=== PATIENT | female | born 1950 | race Caucasian/White ===

== ENCOUNTER 2019-12-10 14:23 | Outpatient (CLI) | payer MEDICARE, SELFPAY ==
--- NOTE | 2019-12-10 15:02 | ECHO_ITS ---
Patient Info Name: Monisha Greco Age: 69 years : 1950 Gender: Female Ht: 67 in Wt: 184 lbs BSA: 2.01 m2 HR: 67 bpm BP: 142 / 87 mmHg Technical Quality: Good Exam Date: 12/10/2019 3:09 PM Exam Location: [facility] Patient Status: Outpatient Admit Date: 12/10/2019 Staff Ordering Physician: Yong Go DO Lathe Operator Contact Lens: Sarah Deras RDCS Attending Provider: Yong Go DO Referring Physician: Donavan ANDINO; Exam Type: CA echo doppler color flow Study Info Indications - short of breath Complete two-dimensional, color flow and Doppler transthoracic echocardiogram is performed. Summary 1. Left ventricular chamber dimension is normal. 2. Left ventricular systolic function is normal, estimated at 60-65%. 3. The left ventricular diastolic function is grade I diastolic dysfunction. 4. E/e' 9 is minimally elevated. 5. There is trace tricuspid valve regurgitation. 6. No pulmonary hypertension, estimated pulmonary arterial systolic pressure is 31 mmHg. 7. There is trace pulmonic regurgitation. Left Ventricle E/e' 9 is minimally elevated. Left ventricular chamber dimension is normal. Left ventricular systolic function is normal, estimated at 60-65%. The left ventricular diastolic function is grade I diastolic dysfunction. Right Ventricle Right ventricular chamber dimension is normal. Right ventricular systolic function is normal. Left Atria Left atrial chamber dimension is normal. Right Atria Right atrial chamber dimension is normal. Aortic Valve The aortic valve is trileaflet. There is no aortic valve stenosis. There is no aortic valve regurgitation. Pulmonic Valve There is trace pulmonic regurgitation. Mitral Valve There is no mitral valve stenosis. There is no mitral valve regurgitation. Tricuspid Valve There is trace tricuspid valve regurgitation. No pulmonary hypertension, estimated pulmonary arterial systolic pressure is 31 mmHg. Pericardium/Pleural There is no pericardial effusion. Inferior Vena Cava Normal inferior vena cava with >50% collapse upon inspiration consistent with normal right atrial pressure, 5 mmHg. Aorta The aortic root size at the sinus of Valsalva is normal. Left Ventricular Outflow Tract Name Value Normal LVOT 2D LVOT Diameter 2.0 cm LVOT Doppler LVOT Peak Gradient 5 mmHg LVOT Mean Gradient 3 mmHg LVOT VTI 23 cm LVOT VTI/AV VTI Ratio 1.0 LVOT Stroke Volume 72 ml LVOT CO 14.2 l/min LVOT CI 7.1 l/min/m2 Pulmonic Valve Name Value Normal PV Doppler PV Peak Gradient 3 mmHg Mitral Valve
== END 2019-12-10 14:24 | disposition home or self-care (01) ==
PROVIDERS: PCP Internal Medicine; Visit Provider Internal Medicine Cardiovascular Disease
DX: R06.02 Shortness of breath (principal)
CPT/HCPCS: 93306

== ENCOUNTER 2020-12-17 11:43 | Emergency (ER) | payer MEDICARE, SELFPAY ==
--- NOTE | 2020-12-17 11:52 | ED.GENADULT ---
HPI - General Adult General Chief complaint: Ear Stated complaint: swollen, ear Time Seen by Provider: 12/17/20 11:59 Source: patient and RN notes reviewed Mode of arrival: ambulatory Limitations: no limitations History of Present Illness HPI narrative: 70-year-old female presents with complaints of redness, warmth, tenderness, and swelling to right earlobe for 1 day. Monisha reports wearing an old pair of earrings 2 days prior to start of symptoms, increase in tenderness, redness, and intermittent itching throughout the night. Applied drawing salve and cleaned area without relief. Denies radiation of tenderness, redness, or swelling. Denies insect bite. No exacerbating factors. Denies open areas or drainage. Denies fever or chills. LMP post-menopausal. Remains active. The patient reports she have not been diagnosed with COVID-19. The patient reports she is not waiting for the results of a COVID-19 lab test. The patient reports she do not have chills, weakness, or fatigue. The patient reports she do not have a new or worsening cough or shortness of breath. Denies chest pain. The patient reports she do not have any rhinorrhea, congestion, sore throat, loss of taste or smell, nausea, vomiting, abdominal pain, and diarrhea. Tolerating po intake well. Denies recent traveling. Denies concerns for COVID-19 or exposures been home with limited outdoor exposure except for essential household needs and return home. At this time, patient is not suspected of having COVID-19. Some parts of this dictation were generated by voice recognition software and may contain typographical and/or grammatical inaccuracies. Related Data Home Medications Medication Instructions Recorded Confirmed multivitamin with minerals 1 tablet PO DAILY 11/26/19 12/17/20 potassium 99 mg tablet 99 mg PO DAILY 11/26/19 12/17/20 levothyroxine [Euthyrox] 50 mcg PO DAILY 12/17/20 12/17/20 meloxicam 15 mg PO DAILY 12/17/20 12/17/20 Allergies Allergy/AdvReac Type Severity Reaction Status Date / Time No Known Allergies Allergy Verified 12/15/20 11:54 Review of Systems Review of Systems: Narrative: CONSTITUTIONAL: Denies fever, chills, sweats. EYES: Denies visual changes, redness, discharge. ENT: Denies rhinorrhea, congestion, sore throat, otalgia. CARDIOVASCULAR: Denies chest pain, palpitations, edema. RESPIRATORY: Denies dyspnea, wheezing, cough. GASTROINTESTINAL: Denies abdominal pain, nausea, vomiting, diarrhea. SKIN: Complaints of redness, warmth, tenderness, swelling, and intermittent itching to right earlobe. MUSCULOSKELETAL: Denies acute back pain, joint pain, or myalgia. NEUROLOGIC: Denies numbness or focal weakness. PSYCHIATRIC: Denies anxiety or depression. All systems reviewed & are unremarkable except as noted in HPI and below. [facility] Past Medical History Medical History (Updated 12/17/20 @ 12:27 by MIK Arevalo) Arthritis Chronic GERD Hypertension Hyperuricemia Hypothyroidism (acquired) Influenza vaccine administered Prevbar 13 was given in L delt on 07/23/2019 at [facility] hyperlipidemia Obstructive sleep apnea wears a CPAP Vaccine for VZV (varicella-zoster virus) Surgical History Surgical History (Updated 12/17/20 @ 12:27 by MIK Arevalo) H/O dilation and curettage History of colonoscopy History of knee replacement History of total left knee replacement [facility] 07/06/2020 Family History Family History Other Family history of coronary artery disease Family history of malignant neoplasm of male breast Hypertension Social History Social History (Updated 12/17/20 @ 12:25 by MIK Arevalo) Smoking status: Never smoker Tobacco type: cigarettes Second hand tobacco smoke exposure: No Alcohol intake: current Substance use: never Substance use type: does not use Living arrangements: with family Occupation/E
[2020-12-17 11:57] VITALS: BP 184/98; PULSE 103; RESP 18; TEMP 36.9; O2SAT 99
[2020-12-17 12:08] VITALS: BP 168/89
== END 2020-12-17 12:24 | disposition home or self-care (01) ==
PROVIDERS: Emergency Provider Nurse Practitioner Family; PCP Internal Medicine
DX: H60.11 Cellulitis of right external ear (principal); M19.90 Unspecified osteoarthritis, unspecified site; K21.9 Gastro-esophageal reflux disease without esophagitis; I10 Essential (primary) hypertension; E03.9 Hypothyroidism, unspecified; E78.2 Mixed hyperlipidemia; G47.33 Obstructive sleep apnea (adult) (pediatric); Z96.642 Presence of left artificial hip joint
CPT/HCPCS: 99213; G0463

== ENCOUNTER 2021-12-05 13:47 | Outpatient (CLI) | payer MEDICARE, SELFPAY | END 2021-12-05 13:48 | disposition home or self-care (01) | LOC: ANHAUDASC 13:48 | PROVIDERS: PCP Family Medicine; Visit Provider Otolaryngology | DX: H93.13 Tinnitus, bilateral (principal); H90.3 Sensorineural hearing loss, bilateral | CPT/HCPCS: 92557; 92567 ==

== ENCOUNTER 2022-11-23 02:15 | Day surgery (SDC) | payer MEDICARE, SELFPAY ==
[2022-11-10 10:37] VITALS: BMI 28.8
[2022-11-23 08:58] VITALS: BP 183/86; PULSE 102; RESP 18; TEMP 36.7; O2SAT 100; BMI 28.7
[2022-11-23] MEDS: LACTATED RINGERS 1,000 ML 150 ML IV CONT (09:08)
--- NOTE | 2022-11-23 09:38 | PM.HPGS ---
History of Present Illness History of Present Illness Consent: Risks, benefits, and alternatives have been discussed and questions answered. Patient agrees to proceed with procedure. Chief complaint: positive cologuard test Narrative: Monisha Greco is a 71 year old female Presents for screening colonoscopy. Patient recently found to have a positive Cologuard test. Patient presents today for colonoscopy. Patient reports that her current weight appetite and bowel movements are normal. Patient denies abdominal pain. She has had no bleeding. Her family history is noncontributory. Review of Systems Review of Systems: Review of systems noncontributory. [facility] Past Medical History Medical History (Updated 11/07/22 @ 13:15 by Mina López MD) Arthritis Chronic GERD Encounter for counseling on use of CPAP Hypertension Hypertension Hyperuricemia Hypothyroidism (acquired) Influenza vaccine administered Prevbar 13 was given in L delt on 07/23/2019 at [facility] Mixed hyperlipidemia Obstructive sleep apnea wears a CPAP Positive colorectal cancer screening using Cologuard test Thyroid disorder Vaccine for VZV (varicella-zoster virus) Surgical History Surgical History ) H/O dilation and curettage History of colonoscopy History of knee replacement History of total left knee replacement [facility] 07/06/2020 Family History Family History ) Father Heart disease Malignant neoplasm of prostate Mother Hypertension Thyroid disorder Sibling Breast cancer Other Family history of coronary artery disease Family history of malignant neoplasm of male breast Social History Social History ) Smoking status: Never smoker Tobacco type: cigarettes Second hand tobacco smoke exposure: No Alcohol intake: current Drinks per week: 2 Substance use: never Substance use type: does not use Living arrangements: alone Gender identity (if verbalized by the patient): Male Sexual Orientation (if Verbalized by the Patient): Straight or Heterosexual Spiritual care concerns: No Agree to blood products: Yes Meds Home Medications and Allergies Home Medications Medication Instructions Recorded Confirmed Type multivitamin with minerals 1 tablet PO DAILY 11/26/19 11/23/22 History potassium 99 mg tablet 99 mg PO DAILY 11/26/19 11/23/22 History vitamin E 100 unit capsule 150 unit PO DAILY #135 caps 08/05/20 11/23/22 Rx allopurinol 300 mg tablet 300 mg PO DAILY #90 tabs 01/27/22 11/23/22 Rx rosuvastatin 10 mg tablet 5 mg PO DAILY #90 tabs 05/02/22 11/23/22 Rx Eye Promise 1 tablet PO DAILY 11/10/22 11/23/22 History calcium 600 mg capsule 600 mg PO DAILY 11/10/22 11/23/22 History famotidine 20 mg tablet 20 mg PO DAILY 11/10/22 11/23/22 History levothyroxine 50 mcg tablet 50 mcg PO DAILY 11/10/22 11/23/22 History (Euthyrox) omega-3 fatty acids-vitamin E 1 cap PO DAILY 11/10/22 11/23/22 History 1,000 mg capsule triamterene 75 1 tablet PO DAILY 11/10/22 11/23/22 History mg-hydrochlorothiazide 50 mg tablet Allergies Allergy/AdvReac Type Severity Reaction Status Date / Time No Known Allergies Allergy Verified 11/23/22 08:56 Vital Signs Vital Signs - 24 hr 11/23/22 08:58 Temperature 98.1 F Pulse Rate 102 H Respiratory Rate 18 Blood Pressure 183/86 H Pulse Oximetry 100 Oxygen Delivery Room Air Exam Narrative: Physical exam reveals patient to be alert. Vital signs stable. HEENT exam is unremarkable. Patient is anicteric. Lungs are clear to auscultation and percussion. Heart is without murmur or extra sounds. Abdomen bowel sounds are present soft nontender with no hepatosplenomegaly. Digital external rectal exam is normal. Assessment and Plan Assessment and plan (1) Positive colorectal cancer screening using [place]
--- NOTE | 2022-11-23 09:43 | WPDANESEPPF ---
Anes - Initial Pre Proc Eval Procedure: Operation Date: 11/23/22 10:00 Proposed Procedures p Colonoscopy - Attila Gallegos MD Date/Time: 11/23/22 09:43 Surgeon: Attila Gallegos MD Pre Op Diagnosis: positive cologuard test Patient Data Age: 71 Gender: F Height: 1.7 m Weight: 83.1 kg Last Vital Signs Temp 98.1 F 11/23/22 08:58 Pulse 102 H 11/23/22 08:58 Resp 18 11/23/22 08:58 BP 183/86 H 11/23/22 08:58 Pulse Ox 100 11/23/22 08:58 O2 Del Method Room Air 11/23/22 08:58 Allergies Allergy/AdvReac Type Severity Reaction Status Date / Time No Known Allergies Allergy Verified 11/23/22 08:56 Home Medications Medication Instructions Recorded Confirmed Type multivitamin with minerals 1 tablet PO DAILY 11/26/19 11/23/22 History potassium 99 mg tablet 99 mg PO DAILY 11/26/19 11/23/22 History vitamin E 100 unit capsule 150 unit PO DAILY #135 caps 08/05/20 11/23/22 Rx allopurinol 300 mg tablet 300 mg PO DAILY #90 tabs 01/27/22 11/23/22 Rx rosuvastatin 10 mg tablet 5 mg PO DAILY #90 tabs 05/02/22 11/23/22 Rx Eye Promise 1 tablet PO DAILY 11/10/22 11/23/22 History calcium 600 mg capsule 600 mg PO DAILY 11/10/22 11/23/22 History famotidine 20 mg tablet 20 mg PO DAILY 11/10/22 11/23/22 History levothyroxine 50 mcg tablet 50 mcg PO DAILY 11/10/22 11/23/22 History (Euthyrox) omega-3 fatty acids-vitamin E 1 cap PO DAILY 11/10/22 11/23/22 History 1,000 mg capsule triamterene 75 1 tablet PO DAILY 11/10/22 11/23/22 History mg-hydrochlorothiazide 50 mg tablet Patient hx anesthesia problems: none Family hx anesthesia problems: none Results Review: All pre-operative results and documents have been reviewed as part of the pre-operative evaluation. [facility] Past Medical History Medical History (Updated 11/07/22 @ 13:15 by Mina López MD) Arthritis Chronic GERD Encounter for counseling on use of CPAP Hypertension Hypertension Hyperuricemia Hypothyroidism (acquired) Influenza vaccine administered Prevbar 13 was given in L delt on 07/23/2019 at [facility] Mixed hyperlipidemia Obstructive sleep apnea wears a CPAP Positive colorectal cancer screening using Cologuard test Thyroid disorder Vaccine for VZV (varicella-zoster virus) Surgical History Surgical History ) H/O dilation and curettage History of colonoscopy History of knee replacement History of total left knee replacement [facility] 07/06/2020 Family History Family History ) Father Heart disease Malignant neoplasm of prostate Mother Hypertension Thyroid disorder Sibling Breast cancer Other Family history of coronary artery disease Family history of malignant neoplasm of male breast Social History Social History ) Smoking status: Never smoker Tobacco type: cigarettes Second hand tobacco smoke exposure: No Alcohol intake: current Drinks per week: 2 Substance use: never Substance use type: does not use Living arrangements: alone Gender identity (if verbalized by the patient): Male Sexual Orientation (if Verbalized by the Patient): Straight or Heterosexual Spiritual care concerns: No Agree to blood products: Yes Anes - Eval Final PreProcedure Day of Procedure 11/23/22 09:43 Patient weight: normal Heart: regular rate and rhythm Lungs: clear to auscultation Airway: Mallampati scale class II Neurological: alert and oriented Last oral intake: >/= 8 hours ASA classification: III Emergent: no Anesthetic plan: proceed Anesthesia type and monitoring: general GIVS and standard monitoring Results Review: All pre-operative results and documents have been reviewed as part of the pre-operative evaluation. Informed Consent: The patient's anesthetic plan and its attendant risks and benefits were discussed with the patient/famil
[2022-11-23 10:17] VITALS: BP 103/67; PULSE 78; RESP 18; O2SAT 97
[2022-11-23 10:27] VITALS: BP 117/71; PULSE 85; RESP 20; O2SAT 98
[2022-11-23 10:37] VITALS: BP 115/77; PULSE 83; RESP 20; O2SAT 98
== END 2022-11-23 10:50 | disposition home or self-care (01) ==
PROVIDERS: PCP Family Medicine; Visit Provider Internal Medicine Gastroenterology
PROC: 0DJD8ZZ Inspection of Lower Intestinal Tract, Via Natural or Artificial Opening Endoscopic (ICD-10-PCS; CPT 45378; principal; 2022-11-23 10:00)
DX: R19.5 Other fecal abnormalities (principal); D12.4 Benign neoplasm of descending colon; K63.5 Polyp of colon; K64.8 Other hemorrhoids; I10 Essential (primary) hypertension; E03.9 Hypothyroidism, unspecified; E78.2 Mixed hyperlipidemia; G47.33 Obstructive sleep apnea (adult) (pediatric); K21.9 Gastro-esophageal reflux disease without esophagitis
CPT/HCPCS: 45385; 88305; J2704; J7120

== ENCOUNTER 2023-01-19 11:00 | Outpatient (RCR) | payer MEDICARE, SELFPAY ==
--- NOTE | 2023-01-19 14:00 | PTOPDC ---
Assessment and note entered by Raissa Camacho, PT Assessment Status Discharge Diagnosis Cervicalgia Onset >3 months Subjective Information Pt reports with reaching behind her or tucking her shirt in still feels it in her shoulders. Reports feeling 75-80% improved overall Reported Pain Level Pain Score 0,2,0: Self Report Assessment PT Clinical Summary Pt has attended therapy consistently for cervicalgia. She initially also complained of bilat UE pain. Since therapy, she reports she feels 70-08% improved overall. Cont to feel it in her upper arm and shoulder with reaching behind her or tucking in her shirt. Shoulder testing shows impingement symptoms, and rotator cuff weakness. Pt was educated on difference in shoulder discomfort versus cervicalgia. Pt was educated on returning to therapy should she require assistance with either her neck or shoulders. She has met her therapy goals and understands her home exercises program. Thus she is being discharged from therapy services for completion of program
--- NOTE | 2023-02-05 14:23 | BUPTOPEVAL1 ---
Assessment and note entered by Raissa Camacho, PT Evaluation Information Assessment Status Evaluation Diagnosis Cervicalgia Onset >3 months Subjective Information Pt reports pain mainly in Zheng deltoids with UE Active ROM. Pt reports only slight R sided cervical pain without being able to state what makes her pain worse. Pt enjoys biking. Pt reporting changing her mattress in October (start of noticeable pain). Pt reports she has been trying to change her positioning in bed to see if this makes a difference. Reported Pain Level Pain Score 4,2: Self Report Additional Pain Score Comments Pt reports 4/10 pain at start of session then 2/10 pain at end of session for R sided neck pain. Pt more concerned about Zheng deltoid pain with active UE ROM (2/10 with movement, 0/10 with rest). Assessment PT Clinical Summary Pt is a 72 year old female who present with Cervicalgia (>R side). Pt reporting reduce ability to rotate head to the R (consistent findings with active ROM testing). Pt does not report any increase in pain with functional tasks and was unable to provide therapist when cervical pain is worse, but did not limitation whe range of motion when driving. Pt educated and trained on positioning when sleeping in bed with good spinal alignment and bed mobility training to reduce strain on cervical spine. Pt noted to have a slight kyphotic posture with forward head and rounded shoulders. Pt trained on HEP of gentle stretching and strengthening of Cervical spine. Pt reporting positive outcomes at end of session. Pt scored 5/50 on neck disability index scale (mild disability). Pt will benefit from skilled therapy to improve standing posture specifically at cervical/thoracic spine, improve cervical active ROM, and reduce cervical pain with functional tasks such as driving. Plan of Care Interventions Electrical Stimulation,Gait Training,Hot Pack/Cold Pack,Manual Therapy,Neuro Re-education,Patient/ Caregiver Educati,Therapeutic Activities, Therapeutic Exercise,Ultrasound PT Services Indicated Yes Treatment Frequency and 2x/week for 4 weeks Duration These treatments will address the objective and functional deficits as defined above. The patient will be advanced safely and appropriately in order for the patient to progress towards his/her prior level of function. Additional exer
== END 2023-02-06 11:05 | disposition home or self-care (01) ==
LOC: ANHHIPT 11:00
PROVIDERS: PCP Family Medicine; Visit Provider Family Medicine
DX: M54.2 Cervicalgia (principal)
CPT/HCPCS: 97014; 97110; 97112; 97140; 97161; G0283

== ENCOUNTER 2023-01-20 10:05 | Outpatient (CLI) | payer MEDICARE, SELFPAY ==
--- NOTE | ~2023-01-20 | DEXA_ITS ---
Bone Density Report Name: RODGER NIEVES Age: 72 Sex: Female Ethnicity: White Date of : 1950 Indication: postmenopausal; screening for osteoporosis; height loss; Referring Provider: SINA FERNANDEZ Study: Bone densitometry was performed. Exam Date: January 20, 2023 Accession number: [id number] Bone Density: Region BMD T-score Z-score Classification AP Spine(L1, L2, L3) 0.939 -0.7 1.5 Normal Femoral Neck (Left) 0.737 -1.0 1.0 Normal Total Hip (Left) 0.915 -0.2 1.5 Normal Femoral Neck (Right) 0.781 -0.6 1.4 Normal Total Hip (Right) 0.879 -0.5 1.2 Normal Total Hip Mean 0.897 -0.4 1.4 Normal World Health Organization criteria for BMD impression classify patients as: Normal (T-score at or above -1.0), Osteopenia (T-score between -1.0 and -2.5), or Osteoporosis (T-score at or below -2.5). 10-year Fracture Risk: FRAX not reported because: All T-scores for Spine Total, Hip Total, Femoral Neck at or above -1.0 Clinical Information Provided by Patient: Has used the following medications: Boniva (i.e. ibandronate), Calcium, Multivitamin Patient maximum height was 69.5 Menopause Age: 54 Drinks caffeinated beverages Onset of menses at age 12 Number of children 2 Impression: UNAPPROVED The patient has normal bone mass. Discussion: UNAPPROVED BONE DENSITY IS ABOVE THE MINIMUM DESIRABLE LEVEL AT ALL SKELETAL SITES TESTED. This patient?s bone mineral density is above the minimum desirable level (T-score -1.0 or better) at all sites measured. The patient should follow a healthful lifestyle (good nutrition with adequate calcium and vitamin D, and appropriate weight-bearing exercise). Follow-Up: UNAPPROVED Consider repeating this study in 5 years or sooner if there is some new clinical indication. Reported by: SAM on 01/20/2023 10:36:00 AM. Reviewed, dictated and finalized at location [facility]
== END 2023-01-20 10:06 | disposition home or self-care (01) ==
PROVIDERS: PCP Family Medicine; Visit Provider Family Medicine
DX: M85.80 Other specified disorders of bone density and structure, unspecified site (principal); Z13.820 Encounter for screening for osteoporosis; Z78.0 Asymptomatic menopausal state
CPT/HCPCS: 77080

== ENCOUNTER 2024-03-28 11:55 | Outpatient (CLI) | payer MEDICARE, SELFPAY ==
--- NOTE | 2024-03-28 13:04 | ECG_ITS ---
SEE SCANNED COPY FOR CONFIRMED REPORT MTDD
[2024-03-28 13:27] LABS: Basophils Absolute Auto 0.1 K/mm3 (0.0-0.1); Basophils Percent Auto 0.7 % (0.2-1.2); Eosinophils Absolute Auto 0.2 K/mm3 (0-0.3); Eosinophils Percent Auto 2.2 % (0-4.4); Hematocrit 42.1 % (37.0-47.0); Immature Granulocyte Absolute 0.03 K/mm3 (0.00-0.031); Immature Granulocyte Percent A 0.4 % (0-0.5); Lymphocytes Absolute Auto 2.21 K/mm3 (0.9-3.2); Lymphocytes Percent Auto 27.4 % (18.3-44.2); Mean Corpuscular HGB Conc 33.3 g/dl (32-36); Mean Corpuscular Hemoglobin 31.3 pg (26-34); Mean Corpuscular Volume 94.2 fl (80-100); Monocytes Percent Auto 12.4 % (2.6-8.5); Neutrophils Absolute Auto 4.6 K/mm3 (1.3-6.7); Neutrophils Percent Auto 56.9 % (45.5-73.1); Platelet Count Result 345 k/mm3 (150-375); Red Blood Count 4.47 M/mm3 (4.2-5.4); White Blood Count 8.1 K/mm3 (4.5-10.0)
[2024-03-28 13:37] LABS: Alanine Aminotransferase 23 U/L (6-35); Albumin Level 4.7 g/dL (3.5-5.1); Alkaline Phosphatase 69 U/L (38-126); Anion Gap 6 mmol/L (4-12); Aspartate Amino Transferase 29 U/L (14-36); Bilirubin,Total 0.5 mg/dL (0.2-1.3); Blood Urea Nitrogen 18 mg/dL (7-17); Calcium 10.1 mg/dL (8.4-10.2); Carbon Dioxide 33 mmol/L (22-30); Chloride 101 mmol/L (98-107); Estimated Glomerular Filt Rate > 60; Glucose 115 mg/dL (65-110); Potassium 3.2 mmol/L (3.4-5.0); Sodium 140 mmol/L (137-145)
[2024-03-28 13:39] LABS: Prothrombin Time 13.5 Seconds (11.1-14.7)
== END 2024-03-28 11:56 | disposition home or self-care (01) ==
PROVIDERS: PCP Family Medicine; Visit Provider Urology
DX: Z01.818 Encounter for other preprocedural examination (principal); I10 Essential (primary) hypertension; N81.2 Incomplete uterovaginal prolapse
CPT/HCPCS: 36415; 80053; 85025; 85610; 85730; 86850; 86900; 86901; 93005

== ENCOUNTER 2024-04-07 04:50 | Day surgery (SDC) | payer MEDICARE, SELFPAY ==
[2024-03-28 12:18] VITALS: BMI 28.6
--- NOTE | 2024-03-28 12:29 | PC.NURSE ---
Report to the Outpatient Waiting Room, entrance under the green pavilion located off [facility], at time __9:00AM on date ___04/07/24____. Planned Procedure Time: __11:00AM . Time changes happen often and if your time is changed the preop area will call you the afternoon before. - You and your visitor will be asked to self-screen and do not enter if you have any COVID symptoms. - A mask is optional within the hospital at this time. Patients may have clear liquids (water, carbonated beverages, clear teas, apple juice) until 3 hours prior to surgery with a maximum of 20 ounces. - No food from midnight until time of surgery. Take the following medications with a SIP of water the morning of surgery: ____AMLODIPINE DO NOT STOP ANY OF YOUR OTHER PRESCRIPTION MEDICATIONS PRIOR TO SURGERY ?EXCEPT THE FOLLOWING Medications to discontinue per physician HOLD ALL VITAMINS/SUPPLEMENTS 3 DAYS PRE-OP PER ANESTHESIA Date to take last dose 04/03/24 Please no make-up, nail indonesian, hairspray, perfume, deodorant, or body powder the day of surgery. No jewelry (including any body piercings) or valuables the day of surgery, leave them at home. Please take a shower or bath the night before, or the morning of, surgery with an antibacterial soap. Wear comfortable, loose fitting clothing. - Jewelry must be removed prior to entering the operating room. Rings and piercings that are not removed may be cut off. - The hospital will not accept responsibility for valuables. - Please leave all valuables, including medications, at home the day of surgery. If you are going home after surgery, a licensed driver license agent must drive you home. - NO public transportation without another adult if you receive anesthesia. - We recommend that an adult stay with you for 24 hours following discharge. - We also recommend that you do not drive, make important decision, drink alcoholic beverages, or take any drugs that were not prescribed by your health care provider for at least 24 hours after your discharge time. Follow any additional instructions given to you from your surgeon. If you or anyone in your household have experienced Covid symptoms in the past week, please notify your surgeon or the nurse liaison at the phone number below for possible testing. Telephone instructions given to ____PATIENT and asked if any additional questions and then verbalized understanding. Patient advised to call surgeon office or pre surgery nurse liaison [phone] if any additional questions.
[2024-03-28 13:07] VITALS: BP 156/75; PULSE 89; RESP 16; TEMP 37.2; O2SAT 100
--- NOTE | 2024-04-05 19:25 | PM.IMHP ---
H&P: HPI History of Present Illness Date/Time: 04/05/24 19:25 Chief Complaint: pelvic organ prolapse Narrative: uterine prolapse with stress incontinence on urodynamics Review of Systems Review of Systems: All systems reviewed & are unremarkable except as noted in HPI and below [facility] Past Medical History Medical History (Updated 04/05/24 @ 19:27 by Jake Forrester MD) Arthritis Cervical pain Chronic GERD GERD (gastroesophageal reflux disease) Hypertension Hypertension Hyperuricemia Hypothyroidism (acquired) Influenza vaccine administered Prevbar 13 was given in L delt on 07/23/2019 at [facility] Mixed hyperlipidemia Obstructive sleep apnea wears a CPAP Osteopenia Positive colorectal cancer screening using Cologuard test SUNSHINE (stress urinary incontinence, female) Thyroid disorder Vaccine for VZV (varicella-zoster virus) Surgical History Surgical History H/O dilation and curettage History of colonoscopy History of knee replacement History of total left knee replacement [facility] 07/06/2020 Family History Family History Father Heart disease Malignant neoplasm of prostate Mother Hypertension Thyroid disorder Sibling Breast cancer Other Family history of coronary artery disease Family history of malignant neoplasm of male breast Social History Social History Smoking status: Never smoker Tobacco type: cigarettes Second hand tobacco smoke exposure: No Alcohol intake: current Drinks per week: 3 Substance use: never Substance use type: does not use Living arrangements: alone Occupation/Education: retired Gender identity (if verbalized by the patient): Male Sexual Orientation (if Verbalized by the Patient): Straight or Heterosexual Spiritual care concerns: No Agree to blood products: Yes Meds Home Medications and Allergies Home Medications Medication Instructions Recorded Confirmed Type multivitamin with minerals 1 tablet PO DAILY 11/26/19 03/28/24 History potassium 99 mg tablet 99 mg PO DAILY 11/26/19 03/28/24 History vitamin E 100 unit capsule 150 unit PO DAILY #135 caps 08/05/20 03/28/24 Rx calcium 600 mg capsule 600 mg PO BID 11/10/22 03/28/24 History omega-3 fatty acids-vitamin E 1 cap PO DAILY 11/10/22 03/28/24 History 1,000 mg capsule triamterene 75 See Rx Instructions .Route 10/31/23 03/28/24 Rx mg-hydrochlorothiazide 50 mg tablet .COMPLEX #90 tabs allopurinol 300 mg tablet See Rx Instructions .Route 11/12/23 03/28/24 Rx .COMPLEX #90 tabs levothyroxine 50 mcg tablet See Rx Instructions .Route 11/12/23 03/28/24 Rx .COMPLEX #90 tabs rosuvastatin 10 mg tablet 5 mg PO DAILY #45 tabs 11/12/23 03/28/24 Rx famotidine 20 mg tablet 20 mg PO DAILY #90 tabs 01/25/24 03/28/24 Rx amlodipine 10 mg tablet 10 mg PO QAM 03/28/24 03/28/24 History carboxymethylcellulose sodium 0.5 1 drp EACH EYE BID 03/28/24 03/28/24 History % eye drops vitamin A-vitamin C-vit E-min 1 tablet PO DAILY 03/28/24 03/28/24 History tablet Allergies Allergy/AdvReac Type Severity Reaction Status Date / Time No Known Allergies Allergy Verified 03/28/24 12:10 Exam Narrative: no acute distress normal breathing urethral mobility anterior wall +3 apex 0 Assessment and Plan Assessment and plan (1) Uterine prolapse: Code(s): N81.4 - Uterovaginal prolapse, unspecified Status: Acute Plan robotic colpopexy with urethral sling. Understands risks of bleeding, infection, damage to surrounding organs, damage to the urinary tract, vaginal mesh extrusion, urinary tract mesh erosion, obstructive voiding requiring secondary procedure, hip and leg pain, recurrence of prolapse, dyspareunia. Agrees to proceed
[2024-04-07] VITALS (11 sets, daily range): BP systolic 100–155; BP diastolic 56–80; PULSE 63–85; RESP 15–20; TEMP 36.1–36.9; O2SAT 95–100
--- NOTE | 2024-04-07 04:44 | WPDHPUPDATE1 ---
History and Physical Update Update Date/Time: 04/07/24 04:44 History and Physical has been reviewed, including an updated exam of the patient. There are NO changes in the patient's condition. Risks, benefits, and alternatives have been discussed and questions answered. Patient agrees to proceed with procedure.
[2024-04-07] MEDS: LACTATED RINGERS 1,000 ML 30 ML IV CONT ×2 (10:15→14:54)
[2024-04-07 10:54] LABS: Partial Thromboplastin Time 30.2 Seconds (22.3-36.8)
--- NOTE | 2024-04-07 11:07 | WPDANESEPPF ---
Anes - Initial Pre Proc Eval Procedure: Operation Date: 04/07/24 11:00 Proposed Procedures p Robotic Sacrocolpopexy, Urethral Sling - Jake Forrester MD s Robotic Assisted Laparoscopic Supracervical Hysterectomy With Bilateral Salpingo-oophorectomy - Raghu Michelle MD Date/Time: 04/07/24 11:07 Surgeon: Jake Forrester MD Pre Op Diagnosis: incomplete utero/vag prolapse stress incont Patient Data Age: 73 Gender: F Height: 1.7 m Weight: 80.65 kg Last Vital Signs Temp 36.6 C 04/07/24 11:03 Pulse 82 04/07/24 11:03 Resp 20 04/07/24 11:03 BP 155/79 H 04/07/24 11:03 Pulse Ox 99 04/07/24 11:03 O2 Del Method Room Air 04/07/24 11:03 Allergies Allergy/AdvReac Type Severity Reaction Status Date / Time No Known Allergies Allergy Verified 04/07/24 11:00 Home Medications Medication Instructions Recorded Confirmed Type multivitamin with minerals 1 tablet PO DAILY 11/26/19 04/07/24 History potassium 99 mg tablet 99 mg PO DAILY 11/26/19 04/07/24 History vitamin E 100 unit capsule 150 unit PO DAILY #135 caps 08/05/20 04/07/24 Rx calcium 600 mg capsule 600 mg PO BID 11/10/22 04/07/24 History omega-3 fatty acids-vitamin E 1 cap PO DAILY 11/10/22 04/07/24 History 1,000 mg capsule triamterene 75 See Rx Instructions .Route 10/31/23 04/07/24 Rx mg-hydrochlorothiazide 50 mg tablet .COMPLEX #90 tabs allopurinol 300 mg tablet See Rx Instructions .Route 11/12/23 04/07/24 Rx .COMPLEX #90 tabs levothyroxine 50 mcg tablet See Rx Instructions .Route 11/12/23 04/07/24 Rx .COMPLEX #90 tabs rosuvastatin 10 mg tablet 5 mg PO DAILY #45 tabs 11/12/23 04/07/24 Rx famotidine 20 mg tablet 20 mg PO DAILY #90 tabs 01/25/24 04/07/24 Rx amlodipine 10 mg tablet 10 mg PO QAM 03/28/24 04/07/24 History carboxymethylcellulose sodium 0.5 1 drp EACH EYE BID 03/28/24 04/07/24 History % eye drops vitamin A-vitamin C-vit E-min 1 tablet PO DAILY 03/28/24 04/07/24 History tablet Laboratory Tests 04/07/24 10:21 APTT 30.2 Seconds (22.3-36.8) Patient hx anesthesia problems: none Family hx anesthesia problems: none Results Review: All pre-operative results and documents have been reviewed as part of the pre-operative evaluation. [facility] Past Medical History Medical History Arthritis Cervical pain Chronic GERD GERD (gastroesophageal reflux disease) Hypertension Hypertension Hyperuricemia Hypothyroidism (acquired) Influenza vaccine administered Prevbar 13 was given in L delt on 07/23/2019 at [facility] hyperlipidemia Obstructive sleep apnea wears a CPAP Osteopenia Positive colorectal cancer screening using Cologuard test SUNSHINE (stress urinary incontinence, female) Thyroid disorder Vaccine for VZV (varicella-zoster virus) Surgical History Surgical History H/O dilation and curettage History of colonoscopy History of knee replacement History of total left knee replacement [facility] 07/06/2020 Family History Family History Father Heart disease Malignant neoplasm of prostate Mother Hypertension Thyroid disorder Sibling Breast cancer Other Family history of coronary artery disease Family history of malignant neoplasm of male breast Social History Social History Smoking status: Never smoker Tobacco type: cigarettes Second hand tobacco smoke exposure: No Alcohol intake: current Drinks per week: 3 Substance use: never Substance use type: does not use Living arrangements: alone Occupation/Education: retired Gender identity (if verbalized by the patient): Male Sexual Orientation (if Verbalized by the Patient): Straight or Heterosexual Spiritual care concerns: No Agree to blood products: Yes Mary Kates - Curtis Patricio
--- NOTE | 2024-04-07 11:53 | PM.IMHP ---
H&P: HPI History of Present Illness Date/Time: 04/07/24 11:53 Chief Complaint: Prolapse Narrative: 73-year-old female with Pelvic organ prolapse. She has agreed to robotic sacral colpopexy and robotic supracervical hysterectomy with bilateral salpingo-oophorectomy. The patient understands the details of the procedure. The procedure has been explained in detail. She understands the risks. She understands that injuries may occur that result in hospitalization, more surgery, and severe illness. She understands risk of hemorrhage and infection. She denies any chest pain or shortness of breath. She denies any nausea, vomiting, fever, chills. Review of Systems Review of Systems: All systems reviewed & are unremarkable except as noted in HPI and below Constitutional: Constitutional: Denies chills, Denies fatigue, Denies fever(s) and Denies weakness Eyes: Eyes: Denies blurry vision, Denies change in vision, Denies loss of peripheral vision, Denies loss of vision, Denies other visual disturbances and Denies eye pain ENT: Denies vertigo, Denies dizziness, Denies hearing loss, Denies mouth pain, Denies nasal obstruction, Denies neck mass and Denies neck pain Cardiovascular: Cardiovascular: Denies chest pain, Denies diaphoresis, Denies syncope, Denies leg edema and Denies dyspnea Respiratory: Respiratory: Denies chest congestion, Denies cough, Denies hemoptysis, Denies dyspnea and Denies wheezing Gastrointestinal: Gastrointestinal: Denies abdominal pain, Denies constipation, Denies diarrhea, Denies nausea and Denies vomiting Genitourinary: Genitourinary: Denies hematuria, Denies change in libido, Denies nocturia, Denies genital lesions, Denies flank pain and Denies urinary urgency Musculoskeletal: Musculoskeletal: Denies abnormal gait, Denies back pain, Denies myalgias, Denies arthralgias, Denies joint swelling, Denies muscle weakness and Denies neck pain Integumentary/Breasts: Skin/Breast: Denies swelling, Denies breast pain, Denies breast mass, Denies dry skin, Denies nipple discharge, Denies unusual bruising and Denies jaundice Neurologic: Denies Neuro-related abnormal movements, Denies Abnormal speech present, Denies abnormal gait, Denies behavioral changes, Denies confusion, Denies vertigo, Denies dizziness, Denies syncope, Denies loss of vision, Denies memory loss, Denies convulsions and Denies weakness Psychiatric: Psychiatric: Denies abnormal sleep pattern, Denies behavioral changes, Denies change in libido, Denies confusion, Denies depression, Denies anhedonia and Denies memory loss Endocrine: Endocrine: Reports no additional endocrine complaints, Denies change in libido and Denies fatigue Hematologic/Lymphatic: Hematologic/Lymphatic: Reports no additional hematologic/lymphatic complaints Allergic/Immunologic: Allergic/Immunologic: Reports no additional allergic/immunologic complaints and Denies wheezing PMFSH Past Medical History Medical History Arthritis Cervical pain Chronic GERD GERD (gastroesophageal reflux disease) Hypertension Hypertension Hyperuricemia Hypothyroidism (acquired) Influenza vaccine administered Prevbar 13 was given in L delt on 07/23/2019 at [facility] Mixed hyperlipidemia Obstructive sleep apnea wears a CPAP Osteopenia Positive colorectal cancer screening using Cologuard test SUNSHINE (stress urinary incontinence, female) Thyroid disorder Vaccine for VZV (varicella-zoster virus) Surgical History Surgical History H/O dilation and curettage History of colonoscopy History of knee replacement History of total left knee replacement [facility] 07/06/2020 Family History Family History Father Heart disease Malignant neoplasm of prostate Mother Hypertension Thyroid disorder Sibling Breast cancer Other Family history of ilda
--- NOTE | 2024-04-07 11:56 | WPDHPUPDATE1 ---
History and Physical Update Update Date/Time: 04/07/24 11:56 History and Physical has been reviewed, including an updated exam of the patient. There are NO changes in the patient's condition. Risks, benefits, and alternatives have been discussed and questions answered. Patient agrees to proceed with procedure.
--- NOTE | 2024-04-07 11:57 | WPDHPUPDATE1 ---
History and Physical Update Update Date/Time: 04/07/24 11:57 History and Physical has been reviewed, including an updated exam of the patient. There are NO changes in the patient's condition. Risks, benefits, and alternatives have been discussed and questions answered. Patient agrees to proceed with procedure.
[2024-04-07] MEDS: ceFAZolin 2 GM/D5W 50 ML 2 GM/50 ML BAG IVPB (12:07)
[2024-04-07] MEDS: metroNIDAZOLE 500 MG/ISO 100ML 500 MG/100 ML BAG 100 MG IVPB ×2 (12:07→20:48)
--- NOTE | 2024-04-07 13:14 | W.PM.PROC2 ---
Procedure Note - Detailed Date of Procedure 04/07/24 Pre-op Diagnosis incomplete utero/vag prolapse stress incont Post-op Diagnosis Same Procedure Performed Robotic assisted supracervical hysterectomy with bilateral salpingo-oophorectomy Surgeon Raghu Michelle MD Anesthesia General Indications pelvic organ prolapse Findings normal-appearing uterus, ovaries, and left tube, right tube was partially resected. Some scarring over the posterior cul-de-sac peritoneum. Description of Procedure This patient was taken to the operating room. She was prepped and draped in the dorsal lithotomy position after induction of general anesthesia. the robot trocars and docking was performed by Dr. Forrester. a tenaculum was applied to the vaginal mucosa at the cervicovaginal juncture posteriorly. This was done with a speculum and tenaculum. The speculum was placed. The cervix was grasped with a tenaculum. Trocars were placed by Dr. Forresetr. The location of the ureters was identified at the pelvic brim. The ovaries were grasped and raised. The infundibulopelvic ligaments were cauterized and transected with LigaSure cautery. This was all done in a bilateral fashion. The para ovarian tissue was cauterized and transected with LigaSure cautery bilaterally. Moving around the ovary into the broad ligament the tissue was cauterized transected with The vessel sealer cautery. The round ligaments were cauterized transected with the vessel sealer cautery this was all done in a bilateral fashion. In a stepwise fashion along the lateral aspects of the uterus the round ligament and broad ligaments were cauterized transected down to the level of the uterine arteries. The cervix was transected using unipolar cautery. the uterus was bifurcated down to the level the cervix. The uterus and bilateral tubes and ovaries were laid off to the side for Dr. Forrester to remove later. The remainder of the procedure was performed by Dr. Forrester, again he finished the surgery. Urine Output 800 Drains Yes Packing No Pathology Yes Complications No immediate complications Condition Stable Disposition Floor
[2024-04-07] MEDS: BUPIVACAINE/EPINEPHRINE 0.5% 10 ML VIAL 40 ML INFILTRATE (13:24)
--- NOTE | 2024-04-07 14:53 | W.PM.PROC2 ---
Procedure Note - Detailed Date of Procedure 04/07/24 Pre-op Diagnosis incomplete utero/vag prolapse stress incont Post-op Diagnosis Same Procedure Performed Robotic assisted laparoscopic sacral colpopexy Urethral sling Cystoscopy Surgeon Jake Forrester MD Anesthesia General Indications A woman with uterine prolapse as well as stress incontinence. She desires surgical correction. She is here for the above. She understands risks of bleeding, infection, diskitis, damage to surrounding organs, bowel injury, bowel obstruction, mesh related complications including exposure and extrusion, postoperative voiding dysfunction including incontinence and retention, need for ancillary procedures, dyspareunia, recurrence of prolapse, and other perioperative intraoperative postoperative complications. She agrees to proceed. Findings See below Description of Procedure She was correctly identified. Informed consent obtained. She from the operating room. She was given general anesthesia. She was given appropriate perioperative antibiotics. She was placed a low lithotomy position. Pressure points were padded. A time-out performed. I marked out the skin 3 fingerbreadths cephalad to the umbilicus. I anesthetized the skin. I incised the skin. I dissected down to the fascia. I grasped the fascia with Abner clamps. I entered the fascia sharply in a Bynum type technique. I placed sutures for later fascial closure. I placed a midline trocar. I examined the abdomen. There is no sign of any injury. Under direct vision I placed 2 additional trocars in the right upper quadrant and 2 additional trocars the left upper quadrant. She was placed in steep Trendelenburg. The robot was docked. Her coal washer completed their portion of the procedure. Please see that operative report for details. I then sat at the console. The Sizer in the vagina created plane on the anterior and posterior vaginal wall. I took great care not to injure the vagina, bladder, or rectum. I introduced the mesh into the abdomen. I sewed the anterior leaflet of mesh on the anterior vaginal wall. I sewed the posterior leaflet of mesh on the posterior vaginal wall. This was done with several sutures of 2 0 [place]. I reflected the colon laterally. I opened the posterior peritoneum over the sacral promontory. I carried this into the cul-de-sac. I freed up the edges for later retroperitonealization. There was some scaring noted in this area. I located the anterior longitudinal ligament the sacrum. I cleaned off all fatty tissues. I then tensioned my mesh appropriately. I did a vaginal exam the bedside. I assured prolapse reduction without undue tension. I then sewed the proximal leaflet of mesh onto the anterior longitudinal ligament of the sacrum with several sutures of 2 0 [place]-Mo. I then used a 2 0 Monocryl to completely and meticulously retroperitonealized all mesh. I allowed the colon to go back to its normal anatomic location. There is no sign of any impingement. The specimen was then removed. All ports removed. Fascia was tied down. An additional suture was used to fully close the fascia. Skin was closed with Monocryl and surgical glue. She was repositioned and prepped for urethral sling. I marked out the inner thigh incisions. I anesthetized the skin and made the incisions. I then anesthetized the anterior vaginal wall at the mid urethra. I made a 1 cm incision. I dissected out laterally taking great care not to injure the refilled vaginal wall. I passed the helical trocars. I did this 1st on the left and then on the right. This was done from the thigh incision towards the vaginal incision. Sling was connected to the trocars and brought out the thigh incision. I tensioned the sling appropriately. I cut and the plastic sheaths. I closed the incision with 2 0 Vicryl. I then performed cystoscopy. There was no tumors or surgical artifact. Both ureters were se
--- NOTE | 2024-04-07 16:22 | ADMGEN ---
This patient, Monisha Greco, was admitted to OB 2nd Floor Room 283-00. Patient/family oriented to hospital policies and general routines including ID bracelet, bed and alarms, visiting hours, pain management, procedures, bathroom and other care routines, personal items, smoking policy, room service/diet, and visiting hours. Information on how to activate the Rapid Response Team has been discussed. Patient/Family are encouraged to report perceived risks to care and to ask questions if they do not understand what they are told or what they should do.
[2024-04-07] MEDS: ONDANSETRON INJ 4 MG/2 ML VIAL IV PUSH (16:43)
[2024-04-07] MEDS: MORPHINE SULFATE (*CRX) 2 MG/ML INJ IV PUSH (21:00)
[2024-04-07] MEDS: LEVOTHYROXINE SODIUM 50 MCG TABLET PO (21:49)
[2024-04-07] MEDS: ceFAZolin 1 GM/NS 50 ML 1 GM/50 ML BAG IVPB (22:07)
[2024-04-08 00:36] VITALS: BP 120/64; PULSE 66; RESP 16; TEMP 36.9; O2SAT 95
[2024-04-08] MEDS: metroNIDAZOLE 500 MG/ISO 100ML 500 MG/100 ML BAG 100 MG IVPB (04:16)
[2024-04-08 04:18] VITALS: BP 120/65; PULSE 64; RESP 14; TEMP 36.9; O2SAT 97
[2024-04-08] MEDS: ceFAZolin 1 GM/NS 50 ML 1 GM/50 ML BAG IVPB (05:15)
[2024-04-08] MEDS: HYDROcodone/acetaminophen (*CRX) 5-325 MG TABLET 1 TAB PO (05:33)
[2024-04-08 07:45] VITALS: BP 125/69; PULSE 79; RESP 16; TEMP 37.7; O2SAT 96
[2024-04-08] MEDS: allopurinoL 300 MG TABLET BY MOUTH (08:16)
[2024-04-08] MEDS: DOCUSATE SODIUM 100 MG CAPSULE PO (08:16)
[2024-04-08] MEDS: amLODIPine BESYLATE 5 MG TABLET 10 MG PO (08:16)
[2024-04-08] MEDS: FAMOTIDINE 20 MG TABLET PO (08:19)
[2024-04-08] MEDS: ROSUVASTATIN 5 MG TABLET PO (08:19)
[2024-04-08] MEDS: ENOXAPARIN 30 MG/0.3 ML SYRINGE SUB-Q (08:20)
--- NOTE | 2024-04-08 08:33 | WPDANESPN ---
Anes - Prog Note Post-Op Date/Time: 04/08/24 08:33 Cardiovascular status: normal Respiratory status: normal Airway patency: baseline Mental status: baseline Post-Op hydration status: normal Vital Signs: Last Vital Signs Temp 36.9 C 04/08/24 04:18 Pulse 64 04/08/24 04:18 Resp 14 04/08/24 04:18 BP 120/65 04/08/24 04:18 Pulse Ox 97 04/08/24 04:18 O2 Del Method Room Air 04/08/24 04:18 O2 Flow Rate 10 04/07/24 15:20 Pain Score (VAS): 0 I/O: Intake & Output 04/07/24 04/08/24 04/08/24 23:59 07:59 15:59 Intake Total 850 Balance 850 04/07/24 10:21 APTT 30.2 Post-procedural complaints: none Patient Feedback: Patient satisfied with anesthetic care.
--- NOTE | 2024-04-08 08:42 | PM.GYNPNOP ---
ENGINEERING PSYCHOLOGIST - A/P Postoperative Procedures: Procedures Operation Date: 04/07/24 11:00 Actual Procedure Side Surgeon p Robotic Sacrocolpopexy, Urethral Sling Jake Forrester MD s Robotic Assisted Laparoscopic Supracervical Hysterectomy With Bilateral Salpingo-oophorectomy Bilateral Raghu Michelle MD Postoperative day: 1 Postoperative status: doing well Postoperative plan: see orders Time Spent With Patient Time: Total time spent is greater than 50% in coordination of care (as documented) at patient's floor/unit and/or counseling patient: Time with patient: less than 15 minutes ENGINEERING PSYCHOLOGIST- PN:Subj Post-Op Subjective Date/time seen: 04/08/24 08:42 Subjective: patient reports feeling better, patient has no complaints and pain is well controlled Exam Const: General: healthy appearing, comfortable and no acute distress Resp: Auscultation: clear to auscultation bilaterally, no rales, no rhonchi and no wheezes Cardio: Rate: regular rate Heart sounds: no click, no murmurs and no rubs GI: Inspection: non-distended Auscultation: normal bowel sounds Extrem: General: normal to inspection, no pedal edema and no calf tenderness ENGINEERING PSYCHOLOGIST - PN: Obj Data Vital Signs Vital Signs: Vital Signs - 24 hr 04/07/24 11:03 04/07/24 14:54 04/07/24 15:05 Temperature 97.9 F 96.9 F L Pulse Rate 82 66 63 Respiratory Rate 20 15 15 Blood Pressure 155/79 H 107/58 L 103/60 Pulse Oximetry 99 100 100 Oxygen Delivery Room Air Simple Face Mask Simple Face Mask Oxygen Flow Rate 10 10 04/07/24 15:20 04/07/24 15:18 04/07/24 15:35 Temperature 97 F L 97.6 F Pulse Rate 64 68 Respiratory Rate 18 20 Blood Pressure 100/58 L 105/59 L Pulse Oximetry 100 100 98 Oxygen Delivery Simple Face Mask Simple Face Mask Room Air Oxygen Flow Rate 10 10 04/07/24 15:50 04/07/24 16:05 04/07/24 16:13 Temperature 97.3 F L 97.6 F 97.9 F Pulse Rate 71 70 68 Respiratory Rate 18 20 17 Blood Pressure 105/56 L 106/57 L 110/58 L Pulse Oximetry 95 98 95 Oxygen Delivery Room Air Room Air Room Air Oxygen Flow Rate 04/07/24 16:30 06/03/24 16:30 04/07/24 21:58 Temperature 97.4 F L 98.4 F Pulse Rate 71 85 Respiratory Rate 16 18 Blood Pressure 115/61 141/80 H Pulse Oximetry 95 95 Oxygen Delivery Room Air Oxygen Flow Rate 04/08/24 00:36 04/08/24 00:36 04/08/24 04:18 Temperature 98.5 F Pulse Rate 66 66 64 Respiratory Rate 16 16 14 Blood Pressure 120/64 Pulse Oximetry 95 95 97 Oxygen Delivery Room Air Room Air Oxygen Flow Rate 04/08/24 04:18 Temperature 98.4 F Pulse Rate 64 Respiratory Rate 14 Blood Pressure 120/65 Pulse Oximetry 97 Oxygen Delivery Oxygen Flow Rate Intake/Output Intake/Output: Intake & Output 04/05/24 04/06/24 04/07/24 04/08/24 23:59 23:59 23:59 23:59 Intake Total 1000 Output Total 1600 Balance -600 Meds/Results Medications: Active Medications Generic Name Dose Route Start Last Admin Trade Name Freq PRN Reason Stop Dose Admin Acetaminophen 650 mg 04/07/24 16:16 Acetaminophen 325 Mg Tablet PO Q4H PRN Mild Pain (1-3) or Fever Hydrocodone Bitart/Acetaminophen 1 tab 04/07/24 16:16 04/08/24 05:33 Hydrocodone/Acetaminophen (*Crx) 5-325 Mg Tablet PO 1 tab Q4H PRN Administration Pain Rated 4-5 Allopurinol 300 mg 04/08/24 09:00 04/08/24 08:16 Allopurinol 300 Mg Tablet BY MOUTH 300 mg DAILY SEE Administration Amlodipine Besylate 10 mg 04/08/24 09:00 04/08/24 08:16 Amlodipine Besylate 5 Mg Tablet PO 10 mg QAM SEE Administration Cephalexin HCl 500 mg 04/08/24 13:00 Cephalexin 500 Mg Capsule PO QID SEE Diphenhydramine HCl 25 mg 04/07/24 16:16 Diphenhydramine Hcl Inj 50 Mg/Ml Vial IV PUSH Q6H PRN Itching Docusate Sodium 100 mg 04/08/24 09:00 04/08/24 08:16 Docusate Sodium 100 Mg Capsule PO 100 mg DAILY SEE Administration Enoxaparin Sodium 30 mg 04/08/24 09:00 04/08/24 08:20 Terra
== END 2024-04-08 12:14 | disposition home or self-care (01) ==
LOC: ANHSURGERY 16:02 → ANHOB2 16:27
PROVIDERS: Anesthesiology; Obstetrics & Gynecology; PCP Family Medicine; Visit Provider Urology
PROC: (CPT 57425; principal; 2024-04-07 11:00)
PROC: 0UT94ZZ Resection of Uterus, Percutaneous Endoscopic Approach (ICD-10-PCS; CPT 57425; 2024-04-07 11:00)
DX: N81.2 Incomplete uterovaginal prolapse (principal); N39.3 Stress incontinence (female) (male); N84.0 Polyp of corpus uteri; I10 Essential (primary) hypertension; E03.9 Hypothyroidism, unspecified; G47.33 Obstructive sleep apnea (adult) (pediatric); K21.9 Gastro-esophageal reflux disease without esophagitis; E78.2 Mixed hyperlipidemia
CPT/HCPCS: 58542; 57425; 57288; S2900 ×2; 36415; 80053; 85025; 85610; 85730; 86850; 86900; 86901; 88307; 93005; 99199; A9270; C1758; C1769; C1771; C1781; J0690; J1100; J1170; J1200; J1650; J1836; J2270; J2405; J2704; J3010; J7030; J7120

== ENCOUNTER 2025-05-02 15:04 | Emergency (ER) | payer MEDICARE, SELFPAY ==
[2025-05-02 15:11] VITALS: BP 174/64; PULSE 95; RESP 17; TEMP 36.9; O2SAT 98
--- NOTE | 2025-05-02 15:21 | ED.EYEPROB ---
HPI - Eye Problem General Chief complaint: Eye Problems Stated complaint: Rt Eyelid Bump Source: patient Mode of arrival: ambulatory Limitations: no limitations History of Present Illness HPI Narrative: Patient is a 74 year old female presents to the clinic with complaints of swelling to her upper right eyelid x 2 days. She has been doing warm compresses at home, but has had minimal relief. She has not been taking anything [id number]. Denies any fevers, vision loss, nausea, vomiting or body aches. Related Data Home Medications ?Medication ?Instructions ?Recorded ?Confirmed ?Last Taken ?Type multivitamin with minerals 1 tablet PO DAILY 11/26/19 01/26/25 Unknown History potassium 99 mg tablet 99 mg PO DAILY 11/26/19 01/26/25 Unknown History calcium 600 mg capsule 600 mg PO BID 11/10/22 05/02/25 Unknown History omega-3 fatty acids-vitamin E 1 cap PO DAILY 11/10/22 01/26/25 Unknown History 1,000 mg capsule carboxymethylcellulose sodium 0.5 1 drp EACH EYE BID 03/28/24 05/02/25 Unknown History % eye drops vitamin A-vitamin C-vit E-min 1 tablet PO DAILY 03/28/24 01/26/25 Unknown History tablet Allergies Allergy/AdvReac Type Severity Reaction Status Date / Time No Known Allergies Allergy Verified 05/02/25 15:08 Review of Systems Review of Systems: CONSTITUTIONAL: Denies body aches, fever, chills EYES: Endorses swelling, redness and pain to R eye; No FB sensation or photophobia. Denies visual changes. ENT: Denies rhinorrhea, congestion, sore throat, or otalgia. CARDIOVASCULAR: Denies chest pain, palpitations RESPIRATORY: Denies cough or dyspnea. GASTROINTESTINAL: Denies abdominal pain, nausea, vomiting, or diarrhea. SKIN: Denies rash, itching, or wounds. MUSCULOSKELETAL: Denies back pain, joint pain, or myalgia. NEUROLOGIC: Denies headache, numbness, tingling, or weakness. All systems reviewed & are unremarkable except as noted in HPI and below PMFSH Past Medical History Medical History SUNSHINE (stress urinary incontinence, female) Osteopenia GERD (gastroesophageal reflux disease) Cervical pain Hypertension Thyroid disorder Obstructive sleep apnea wears a CPAP Arthritis Hypertension Vaccine for VZV (varicella-zoster virus) Influenza vaccine administered Prevbar 13 was given in L delt on 07/23/2019 at [facility] Chronic GERD Hyperuricemia Hypothyroidism (acquired) Mixed hyperlipidemia Surgical History Surgical History History of colonoscopy History of total left knee replacement [facility] 07/06/2020 History of knee replacement H/O dilation and curettage Family History Family History Father Heart disease Malignant neoplasm of prostate Mother Hypertension Thyroid disorder Sibling Breast cancer Other Family history of coronary artery disease Family history of malignant neoplasm of male breast Social History Social History Social History: 11/11/24 Patient is very confident in filling out medical forms. Smoking status: Never smoker Tobacco type: cigarettes Second hand tobacco smoke exposure: No Alcohol intake: current Drinks per week: 3 Substance use: never Substance use type: does not use Do You Feel Safe in your Home?: Yes Lack of Transportation: No Lack of Food: Never True Current Housing: I Have Housing Concerned About Future Housing: No Difficulty Paying Gas/Electric Bills: No Difficulty Paying for Meds: No Currently Unemployed: No Education: High School Diploma/GED Difficulty w/ Childcare or Family Care: No Living arrangements: alone Occupation/Education: retired Gender identity (if verbalized by the patient): Male Sexual Orientation (if Verbalized by the Patient): Straight or Heterosexual Spiritual care concerns: No Agree to blood products: Yes Comments At time of signature, I have reviewed and agree with nursing past medical, surgical, social and family history unless otherwise noted. Please see nursing chart for further information. There is no relevant family history pertinent to the presenting complaint. Exam Narrative: GENERAL: Well-appearing HEAD: Normocephalic, atraumatic. EYES: ?No conjunctival injection. R eye lid edema and erythema c/w stye. EOMI. ?Lid eversion with no foreign body. ENT: Mucous membranes pink and moist. ?No rhinorrhea. ?TMs normal bilaterally. ?Throat normal. Uvula midline. CHEST: ?Clear to auscultation. HEART: Regular rate and rhythm. ABDOMEN: Soft, nontender, nondistended SKIN: Warm, dry, no rash. ?Normal skin turgor. NEURO: No focal deficits. Alert and oriented x3 PSYCH: ?Normal affect. Course Course Level of Care: Express Care Visit Vital Signs Vital signs: Vital Signs Temperature 98.5 F 05/02/25 15:11 Pulse Rate 95 05/02/25 15:11 Respiratory Rate 17 05/02/25 15:11 Blood Pressure 174/64 H 05/02/25 15:11 Pulse Oximetry 98 05/02/25 15:11 Oxygen Delivery Room Air 05/02/25 15:11 Temperature 98.5 F 05/02/25 15:11 Pulse Rate 95 05/02/25 15:11 Respiratory Rate 17 05/02/25 15:11 Blood Pressure 174/64 H 05/02/25 15:11 Pulse Oximetry 98 05/02/25 15:11 Oxygen Delivery Room Air 05/02/25 15:11 Reviewed. MDM - Eye Problem MDM Narrative Medical decision making narrative: Discussed physical exam findings. Ofloxacin prescription given. Advised supportive measures and signs/symptoms to go to the ER. Pt is appropriate for outpt treatment and follow up. Differential Diagnosis Differential diagnosis: Likely other (Hordeolum, foreign body, allergic reaction) Critical Care Time Critical Care Time Critical Care Time: No Discharge Plan Discharge Clinical Impression: Hordeolum Qualifiers: Hordeolum type: unspecified type Laterality: right Eyelid: upper Qualified Code(s): H00.011 - Hordeolum externum right upper eyelid Patient Disposition: Home Condition: Stable Instructions: Christofer (ED) Additional Instructions: Use eyedrops as prescribed. Apply warm, moist compresses on the affected area frequently (for 5 to 10 minutes three to five times per day) in order to help with drainage. Massage and gentle wiping of the affected eyelid after the warm compress can also help with drainage. You can use baby shampoo to wash the eye area Avoid wearing eye makeup or contact lenses. Take medication as directed. If the lesion does not improve within one to two weeks, please follow up with an track rider for further management. Patient Language: [place] Prescriptions: New ofloxacin 0.3 % drops See Rx Instructions .ROUTE .COMPLEX Qty: 10 0RF Rx Instructions: into right eye ;into right eye put 2 drps into affected eye(s) every 4 h x 2 days, then 1 drps 4 times/day days 3-7.; No Action potassium 99 mg tablet 99 mg PO DAILY multivitamin with minerals Tablet 1 tablet PO DAILY amlodipine 10 mg tablet See Rx Instructions .ROUTE .COMPLEX Qty: 90 1RF Dose Instruction: Take 1 tablet by mouth once daily Rx Instructions: Take 1 tablet by mouth once daily famotidine 20 mg tablet 20 mg PO DAILY Qty: 90 1RF Rx Instructions: Take 1 tablet by mouth once daily triamterene-hydrochlorothiazid 75-50 mg tablet See Rx Instructions .ROUTE .COMPLEX Qty: 90 1RF Dose Instruction: Take 1 tablet by mouth once daily Rx Instructions: Take 1 tablet by mouth once daily- takes in am prednisone 20 mg tablet 20 mg PO .COMPLEX Qty: 15 0RF Rx Instructions: 2 tablets daily x 3 days, 1.5 tablets daily x 3 days, 1 tablet daily x 3 days, 1/2 tablet daily x 3 days meloxicam 15 mg tablet 15 mg PO DAILY Qty: 90 0RF vitamin A-vitamin C-vit E-min Tablet 1 tablet PO DAILY carboxymethylcellulose sodium 0.5 % Drops 1 drp EACH EYE BID docusate sodium [Colace] 100 mg capsule 100 mg PO BID Qty: 30 0RF calcium 600 mg Capsule 600 mg PO BID omega-3 fatty acids-vitamin E 1,000 mg Capsule 1 cap PO DAILY vitamin E 100 unit capsule 150 unit PO DAILY Qty: 135 2RF levothyroxine 50 mcg tablet See Rx Instructions .ROUTE .COMPLEX Qty: 90 2RF Dose Instruction: Take 1 tablet by mouth once daily Rx Instructions: Take 1 tablet by mouth once daily- take at hs allopurinol 300 mg tablet See Rx Instructions .ROUTE .COMPLEX Qty: 90 2RF Dose Instruction: Take 1 tablet by mouth once daily Rx Instructions: Take 1 tablet by mouth once daily rosuvastatin 10 mg tablet 10 mg PO DAILY Qty: 90 1RF Follow-up/Referrals: Teresita De Leon [facility] [Primary Care Provider] - Time of Disposition: 15:28
== END 2025-05-02 15:31 | disposition home or self-care (01) ==
PROVIDERS: PCP Nurse Practitioner Family
DX: H00.011 Hordeolum externum right upper eyelid (principal); I10 Essential (primary) hypertension; E78.2 Mixed hyperlipidemia; E03.9 Hypothyroidism, unspecified
CPT/HCPCS: 99213; G0463